=== PATIENT | female | born 1980 | race Caucasian/White ===

== ENCOUNTER → 2022-02-01 | Outpatient (REF) | LOC: M LABSMTC 09:32 | PROVIDERS: ATTEND Family Medicine | DX: Z11.52 Encounter for screening for COVID-19 (principal) ==

== ENCOUNTER → 2022-02-06 | Outpatient (REF) | LOC: M LABSMTC 11:12 | PROVIDERS: ATTEND Family Medicine | DX: Z11.52 Encounter for screening for COVID-19 (principal) ==